=== PATIENT | male | born 1970 | race Hispanic/Latino ===

== ENCOUNTER 2022-12-31 00:15 | Emergency (ER) | payer SELFPAY ==
[2022-12-31 01:32] LABS: Specific Gravity 1.015 (1.005-1.030); Urine Bacteria None Seen /HPF (<20); Urine Bilirubin NEGATIVE (Negative); Urine Blood Negative (Negative); Urine Clarity Clear (Clear); Urine Color Colorless (Yellow); Urine Glucose NEGATIVE (Negative); Urine Protein NEGATIVE (Negative); Urine RBC <5 /HPF (None Seen); Urine Urobilinogen Normal (Normal); Urine pH 6.5 (5.0-7.0)
[2022-12-31] MEDS ORDERED: HYDRALAZINE HCL 20 MG/ML VIAL ONE (01:32)
[2022-12-31] MEDS ORDERED: NA CHLORIDE 0.9% 1,000 ML ONE (01:32)
[2022-12-31 01:42] LABS: Protime INR 1.03
[2022-12-31 01:47] LABS: Barbiturates NEGATIVE (NEGATIVE); Benzodiazepines NEGATIVE (NEGATIVE); Cocaine NEGATIVE (NEGATIVE); METHAMPHETAM NEGATIVE (NEGATIVE); Methadone NEGATIVE (NEGATIVE); Opiates NEGATIVE (NEGATIVE); Phencyclidine NEGATIVE (NEGATIVE); THC Cannibis NEGATIVE (NEGATIVE)
[2022-12-31 01:53] LABS: Absolute Lymphocytes (CBC) 3.4 K/uL (0.7-4.9); Hematocrit 43.7 % (39.6-49.0); Lymphocytes % 40.3 % (15.3-44.8); MCV 94.1 fL (80-100); MPV 8.5 fL (7.6-11.3); RBC Red Blood Cell Count 4.64 M/uL (4.33-5.43)
[2022-12-31 02:01] LABS: Albumin 3.8 g/dL (3.4-5.0); Bilirubin Direct 0.1 mg/dL (0-0.2); Bilirubin Indirect, Calculated 0.3 (0.2-0.8); Bilirubin Total 0.4 mg/dL (0.2-1.0); Magnesium 2.2 mg/dL (1.6-2.4); Potassium 3.5 mEq/L (3.5-5.1); Protein, Total 7.5 g/dL (6.4-8.2); Troponin High Sensitivity 5.4 pg/mL (<58.9)
[2022-12-31] MEDS ORDERED: AMLODIPINE 10 MG TAB ONE (03:03)
--- NOTE | 2022-12-31 03:13 | ER ---
Nurse's Notes [facility] Name: Donavon Lopez Age: 52 yrs Sex: Male : 1970 Arrival Date: 12/31/2022 Time: 00:15 Bed 18 Private MD: Diagnosis: Hypertensive heart disease without heart failure;Other acute sinusitis Presentation: 12/31 00:31 Chief complaint: Patient states: "My blood pressure was 160/115, my left hand started vc1 tingling and a little bit of pain down my left arm.". Coronavirus screen: Vaccine status: Patient reports being unvaccinated. Client denies travel out of the [place] in the last 14 days. At this time, the client does not indicate any symptoms associated with coronavirus-19. Ebola Screen: Patient negative for fever greater than or equal to 101.5 degrees Fahrenheit, and additional compatible Ebola Virus Disease symptoms Patient denies exposure to infectious person. Patient denies travel to an Ebola-affected area in the 21 days before illness onset. No symptoms or risks identified at this time. Initial Sepsis Screen: Does the patient meet any 2 criteria? No. Patient's initial sepsis screen is negative. Does the patient have a suspected source of infection? No. Patient's initial sepsis screen is negative. Risk Assessment: Do you want to hurt yourself or someone else? Patient reports no desire to harm self or others. Onset of symptoms was December 30, 2022 at 23:30. 00:31 Method Of Arrival: Ambulatory vc1 00:31 Acuity: SHANON 2 vc1 Triage Assessment: 00:34 General: Appears in no apparent distress. comfortable, Behavior is calm, cooperative, vc1 appropriate for age. Pain: Complains of pain in left arm Pain does not radiate. Pain currently is 2 out of 10 on a pain scale. EENT: No deficits noted. No signs and/or symptoms were reported regarding the EENT system. Neuro: Level of Consciousness is awake, alert, obeys commands, Oriented to person, place, time, situation, Appropriate for age. Cardiovascular: Chest pain is denied Pain down left arm tingling in left fingers. Respiratory: Airway is patent Respiratory effort is even, unlabored, Respiratory pattern is regular, symmetrical. GI: No deficits noted. No signs and/or symptoms were reported involving the gastrointestinal system. : No deficits noted. No signs and/or symptoms were reported regarding the genitourinary system. Derm: No deficits noted. No signs and/or symptoms reported regarding the dermatologic system. Musculoskeletal: No deficits noted. No signs and/or symptoms reported regarding the musculoskeletal system. Historical: - Allergies: 00:33 No Known Allergies; vc1 - PMHx: 00:33 Hypertensive disorder; Diet controlled; vc1 - PSHx: 00:33 None; vc1 - Immunization history:: Client reports having NOT received the Covid vaccine. - Social history:: Smoking status: Patient denies any tobacco usage or history of. Screenin:34 [facility] ED Fall Risk Assessment (Adult) History of falling in the last 3 months, vc1 including since admission No falls in past 3 months (0 pts) Confusion or Disorientation No (0 pts) Intoxicated or Sedated No (0 pts) Impaired Gait No (0 pts) Mobility Assist Device Used No (0 pt) Altered Elimination No (0 pt) Score/Fall Risk Level 0 - 2 = Low Risk Oriented to surroundings, Maintained a safe environment, Educated pt \\T\\ family on fall prevention, incl call for assistance when getting out of bed. Abuse screen: Denies threats or abuse. Nutritional screening: No deficits noted. Tuberculosis screening: No symptoms or risk factors identified. Assessment: 00:30 General: Appears comfortable, Behavior is calm, cooperative. Pain: Complains of pain in ha1 left arm Pain does not radiate. Pain currently is 5 out of 10 on a pain scale. Pain began suddenly. Neuro: Level of Consciousness is awake, alert, obeys commands, Oriented to person, place, time, situation. Neuro: Reports elevated blood pressure.. Cardiovascular: Capillary refill < 3 seconds Patient's skin is warm and dry. Respiratory: Airway is patent Respiratory effort is even, unlabored, Respiratory pattern is regular, symmetrical. GI: No signs and/or symptoms were reported involving the gastrointestinal system. Musculoskeletal: Circulation, motion, and sensation intact. Range of motion: intact in all extremities. 01:45 Reassessment: Patient and/or family updated on plan of care and expected duration. Pain ha1 level reassessed. Patient is alert, oriented x 3, equal unlabored respirations, skin warm/dry/pink. Patient states feeling better. Patient states symptoms have improved. 02:33 Reassessment: Patient and/or family updated on plan of care and expected duration. Pain ha1 level reassessed. Patient is alert, oriented x 3, equal unlabored respirations, skin warm/dry/pink. Patient denies pain at this time. 03:30 Reassessment: Patient and/or family updated on plan of care and expected duration. Pain ha1 level reassessed. Patient is alert, oriented x 3, equal unlabored respirations, skin warm/dry/pink. Patient denies pain at this time. Patient states feeling better. Patient states symptoms have improved. Vital Signs: 00:31 BP 201 / 137; Pulse 76; Resp 18; Temp 97.4; Pulse Ox 98% ; Weight 81.65 kg; Height 5 vc1 ft. 8 in. ; Pain 0/10; 00:36 BP 189 / 129; vc1 00:45 BP 181 / 118; Pulse 74; Resp 18 S; Pulse Ox 99% on R/A; ha1 01:45 BP 131 / 91; Pulse 71; Resp 14 S; Pulse Ox 97% on R/A; ha1 02:33 BP 164 / 108; Pulse 80; Resp 18 S; Pulse Ox 99% on R/A; ha1 03:30 BP 164 / 104; Pulse 81; Resp 15 S; Pulse Ox 99% on R/A; ha1 00:31 Body Mass Index 27.37 (81.65 kg, 172.72 cm) vc1 00:31 Pain Scale: Adult vc1 ED Course: 00:16 Patient arrived in ED. ja2 00:18 Mike Shoemaker PA is PHCP. cp 00:18 Karthikeyan Sena MD is Attending Physician. cp 00:31 Patient has correct armband on for positive identification. Placed in gown. Bed in low ha1 position. Call light in reach. Side rails up X 1. 00:33 Triage completed. vc1 00:34 Arm band placed on left wrist. vc1 01:06 Alia Rodríguez RN is Primary Nurse. ha1 01:15 Missed attempt(s): 20 gauge in right forearm. bc6 01:16 XRAY Chest (1 view) In Process Unspecified. EDMS 01:25 Urinalysis W/Microscopic Sent. bc6 01:25 UDS Sent. bc6 01:25 Basic Metabolic Panel Sent. bc6 01:25 CBC with Diff Sent. bc6 01:25 LFT's Sent. bc6 01:25 Magnesium Sent. bc6 01:25 NT PRO-BNP Sent. bc6 01:25 PT-INR Sent. bc6 01:25 Troponin HS Sent. bc6 01:26 Inserted saline lock: 22 gauge in right hand, using aseptic technique. bc6 01:44 Basic Metabolic Panel Sent. ha1 01:44 CBC with Diff Sent. ha1 01:44 LFT's Sent. ha1 01:44 Magnesium Sent. ha1 01:44 NT PRO-BNP Sent. ha1 01:44 Troponin HS Sent. ha1 02:24 CT Head Brain wo Cont In Process Unspecified. EDMS 03:46 No provider procedures requiring assistance completed. IV discontinued, intact, ha1 bleeding controlled, No redness/swelling at site. Pressure dressing applied. Administered Medications: 00:49 CANCELLED (Physician Discretion): NS 0.9% IV 1000 ml IV at 1 bolus Per protocol; 1000 cp mL bolus 01:09 Drug: hydrALAZINE IVP 10 mg Route: IVP; Site: right hand; ha1 01:30 Follow up: Response: No adverse reaction ha1 01:10 Drug: NS 0.9% IV 1000 ml Route: IV; Rate: 500 ml/hr; Site: right hand; ha1 03:48 Follow up: Response: No adverse reaction; IV Status: Completed infusion; IV Intake: ha1 1000ml 02:59 Drug: amLODIPine PO 10 mg Route: PO; ha1 03:30 Follow up: Response: No adverse reaction ha1 Medication: 03:46 VIS not applicable for this client. ha1 Intake: 03:48 IV: 1000ml; Total: 1000ml. ha1 Outcome: 03:13 Discharge ordered by . cp 03:46 Discharged to home ambulatory. ha1 03:46 Condition: stable 03:46 Discharge instructions given to patient, Instructed on discharge instructions, follow up and referral plans. medication usage, Demonstrated understanding of instructions, follow-up care, medications, Prescriptions given X 2. 03:49 Patient left the ED. ha1 Signatures: Dispatcher [employer] EDMS Mike Shoemaker PA PA cp Alexander, Jessica ja2 Cindy Rockwell RN RN vc1 Alia Rodríguez RN RN ha1 Any Merlos bc6 Corrections: (The following items were deleted from the chart) 03:48 03:47 Response: No adverse reaction; IV Status: Completed infusion; IV Intake: 500ml ha1ha1
--- NOTE | 2022-12-31 03:13 | EDPHYS ---
Physician Documentation [facility] Name: Donavon Lopez Age: 52 yrs Sex: Male : 1970 Arrival Date: 12/31/2022 Time: 00:15 Bed 18 Private MD: ED Physician Karthikeyan Sena HPI: 12/31 00:55 This 52 yrs old Male presents to ER via Ambulatory with complaints of High cp Blood Pressure. 00:55 The patient has elevated blood pressure and discovered this at home. cp 00:55 Onset: The symptoms/episode began/occurred gradually, and became worse today. cp Associated signs and symptoms: Pertinent positives: headache, left upper arm pain and tingling of left hand, Pertinent negatives: chest pain, visual changes, vomiting, weakness. Severity of symptoms: in the emergency department the blood pressure is are actually worse, 201 mm Hg. Patient reports he has not taken prescribed hypertensive medication Amlodipine for months. Historical: - Allergies: 00:33 No Known Allergies; vc1 - PMHx: 00:33 Hypertensive disorder; Diet controlled; vc1 - PSHx: 00:33 None; vc1 - Immunization history:: Client reports having NOT received the Covid vaccine. - Social history:: Smoking status: Patient denies any tobacco usage or history of. ROS: 01:00 Constitutional: Negative for body aches, chills, fever, poor PO intake. cp 01:00 Cardiovascular: Negative for chest pain, edema, palpitations. cp 01:00 Respiratory: Negative for cough, shortness of breath, wheezing. 01:00 Eyes: Negative for injury, pain, redness, and discharge. cp 01:00 ENT: Negative for drainage from ear(s), ear pain, sore throat, difficulty swallowing, cp difficulty handling secretions. 01:00 Abdomen/GI: Negative for abdominal pain, nausea, vomiting, and diarrhea. 01:00 MS/extremity: Positive for pain, tingling, of the left hand and left upper arm, Negative for injury or acute deformity, decreased range of motion. 01:00 Neuro: Positive for headache, Negative for altered mental status, numbness, syncope, weakness. 01:00 All other systems are negative. Exam: 01:05 Constitutional: The patient appears in no acute distress, alert, awake, cp non-diaphoretic, non-toxic, well developed, well nourished. 01:05 Head/Face: Normocephalic, atraumatic. cp 01:05 Eyes: Periorbital structures: appear normal, Pupils: equal, round, and reactive to light and accomodation, Extraocular movements: intact throughout, Conjunctiva: normal, no exudate, no injection, Sclera: no appreciated abnormality, Lids and lashes: appear normal, bilaterally. 01:05 ENT: External ear(s): are unremarkable, Nose: is normal, Mouth: Lips: moist, Oral mucosa: pink and intact, moist, Posterior pharynx: is normal, airway is patent, no erythema, no exudate. 01:05 Neck: ROM/movement: is normal, is supple, without pain, no range of motions limitations, no nuchal rigidity. 01:05 Chest/axilla: Inspection: normal, Palpation: is normal, no crepitus, no tenderness. 01:05 Cardiovascular: Rate: normal, Rhythm: regular, Edema: is not appreciated, JVD: is not appreciated. 01:05 Respiratory: the patient does not display signs of respiratory distress, Respirations: normal, no use of accessory muscles, no retractions, labored breathing, is not present, Breath sounds: are clear throughout, no decreased breath sounds, no stridor, no wheezing. 01:05 Abdomen/GI: Inspection: abdomen appears normal, Palpation: abdomen is soft and non-tender, in all quadrants. 01:05 Neuro: Orientation: to person, place \T\ time. Mentation: is normal, Cerebellar function: is grossly normal, Motor: moves all fours, strength is normal, Sensation: no obvious gross deficits. 02:27 ECG was reviewed by the Attending Physician. cp Vital Signs: 00:31 BP 201 / 137; Pulse 76; Resp 18; Temp 97.4; Pulse Ox 98% ; Weight 81.65 kg; Height 5 vc1 ft. 8 in. ; Pain 0/10; 00:36 BP 189 / 129; vc1 00:45 BP 181 / 118; Pulse 74; Resp 18 S; Pulse Ox 99% on R/A; ha1 01:45 BP 131 / 91; Pulse 71; Resp 14 S; Pulse Ox 97% on R/A; ha1 02:33 BP 164 / 108; Pulse 80; Resp 18 S; Pulse Ox 99% on R/A; ha1 03:30 BP 164 / 104; Pulse 81; Resp 15 S; Pulse Ox 99% on R/A; ha1 00:31 Body Mass Index 27.37 (81.65 kg, 172.72 cm) vc1 00:31 Pain Scale: Adult vc1 MDM: 00:34 Patient medically screened. 03:10 Data reviewed: vital signs, nurses notes, lab test result(s), EKG, radiologic studies, cp CT scan, plain films. 03:10 Differential diagnosis: hypertensive crisis, Malignant HTN, CVA, intracerebral cp hemorrhage. Consideration of Admission/Observation Escalation of care including admission/observation considered. I considered the following discharge prescriptions or medication management in the emergency department Medications were administered in the Emergency Department. See MAR. Care significantly affected by the following chronic conditions: Hypertension. Counseling: I had a detailed discussion with the patient and/or guardian regarding: the historical points, exam findings, and any diagnostic results supporting the discharge/admit diagnosis, the presence of at least one elevated blood pressure reading (>120/80) during this emergency department visit, lab results, radiology results, the need for outpatient follow up, for definitive care, a family practitioner, to return to the emergency department if symptoms worsen or persist or if there are any questions or concerns that arise at home. Response to treatment: the patient's symptoms have markedly improved after treatment, and as a result, I will discharge patient. 05 00:49 Order name: Basic Metabolic Panel; Complete Time: 02:05 cp 12/31 02:59 Interpretation: Normal except: GLUC 114; BUN 21; GFR 86. cp 12/31 00:49 Order name: CBC with Diff; Complete Time: 02:01 cp 12/31 02:59 Interpretation: EOSINOPHIL % 5.3; Reviewed. cp 12/31 00:49 Order name: LFT's; Complete Time: 02:05 cp 12/31 02:59 Interpretation: Normal except: GLOB 3.7; A/G 1.0. cp 12/31 00:49 Order name: Magnesium; Complete Time: 02:05 cp 12/31 00:49 Order name: NT PRO-BNP; Complete Time: 02:05 cp 12/31 00:49 Order name: PT-INR; Complete Time: 02:01 cp 12/31 00:49 Order name: Troponin HS; Complete Time: 02:05 cp 05/12 03:00 Interpretation: Troponin HS 5.4; Reviewed. 12/31 00:49 Order name: UDS; Complete Time: 02:01 cp 12/31 00:49 Order name: Urinalysis W/Microscopic; Complete Time: 02:01 cp 12/31 00:49 Order name: XRAY Chest (1 view) cp 05 01:04 Order name: CT Head Brain wo Cont cp 12/31 00:49 Order name: EKG; Complete Time: 00:50 cp 12/31 00:49 Order name: Cardiac monitoring; Complete Time: 01:43 cp 12/31 00:49 Order name: EKG - Nurse/Tech; Complete Time: 02:33 cp 12/31 00:49 Order name: IV Saline Lock; Complete Time: :25 cp 12/31 00:49 Order name: Labs collected and sent; Complete Time: 01:25 cp 12/31 00:49 Order name: O2 Per Protocol; Complete Time: :43 cp 12/31 00:49 Order name: O2 Sat Monitoring; Complete Time: :43 cp EC:27 Rate is 73 beats/min. Rhythm is regular. MN interval is normal. QRS interval is normal. cp QT interval is normal. T waves are Inverted in leads III, aVR. Interpreted by me. Reviewed by me. Administered Medications: 00:49 CANCELLED (Physician Discretion): NS 0.9% IV 1000 ml IV at 1 bolus Per protocol; 1000 cp mL bolus 01:09 Drug: hydrALAZINE IVP 10 mg Route: IVP; Site: right hand; ha1 01:30 Follow up: Response: No adverse reaction ha1 01:10 Drug: NS 0.9% IV 1000 ml Route: IV; Rate: 500 ml/hr; Site: right hand; ha1 03:48 Follow up: Response: No adverse reaction; IV Status: Completed infusion; IV Intake: ha1 1000ml 02:59 Drug: amLODIPine PO 10 mg Route: PO; ha1 03:30 Follow up: Response: No adverse reaction ha1 Disposition: 04:08 Co-signature as Attending Physician, Karthikeyan Sena MD I reviewed the patient's care rn provided by the Advanced Practice Provider and agree with the diagnosis and treatment plan. Disposition Summary: 12/31/22 03:13 Discharge Ordered Location: Home cp Problem: chronic cp Symptoms: have improved cp Condition: Stable cp Diagnosis - Hypertensive heart disease without heart failure cp - Other acute sinusitis cp Followup: cp - With: Private Physician - When: 2 - 3 days - Reason: Recheck today's complaints Discharge Instructions: - Discharge Summary Sheet cp - Hypertension, Adult cp - Sinusitis, Adult cp - Aspirin and Your Heart cp - Form - Blood Pressure Record Sheet cp - How to Take Your Blood Pressure cp Forms: - Medication Reconciliation Form cp - Thank You Letter cp - Antibiotic Education cp - Prescription Opioid Use cp Prescriptions: - amlodipine 10 mg Oral tablet - take 1 tablet by ORAL route daily; 30 tablet; Refills: 0, Product Selection cp Permitted - Augmentin 875-125 mg Oral Tablet - take 1 tablet by ORAL route every 12 hours for 10 days; 20 tablet; Refills: 0, cp Product Selection Permitted Signatures: Dispatcher [employer] EDMS Karthikeyan Sena MD MD rn Attema, Lee, BILINGUAL TEACHER-C BILINGUAL TEACHER-Cla1 Mike Shoemaker PA PA cp Cindy Rockwell RN RN vc1 Alia Rodríguez RN RN ha1 Corrections: (The following items were deleted from the chart) 00:49 00:49 NS 0.9% IV 1000 ml IV at 1 bolus Per protocol; 1000 mL bolus ordered. cp cp
[2022-12-31 04:23] VITALS: TEMP 97.4
[2022-12-31 04:29] VITALS: O2SAT 99
[2022-12-31 04:31] VITALS: BP 164/104
--- NOTE | 2023-01-03 11:47 | EKG ---
Test Date: 2022-12-31 Test Time: 02:20:15 Chair Car Attendant: CESAR MEASUREMENT RESULTS: Intervals: Rate: 73 MN: 154 QRSD: 88 QT: 392 QTc: 431 Kopperl: P: 46 MN: 154 QRS: 0 T: -12 INTERPRETIVE STATEMENTS: Normal sinus rhythm Nonspecific T wave abnormality Abnormal ECG No previous ECG available for comparison Electronically Signed On 01-03-23 11:42:00 CDT by Ezekiel Shabazz
--- NOTE | 2023-01-04 08:44 | RAD REPORT ---
EXAM DESCRIPTION: CT - Head Brain Wo Cont - 12/31/2022 5:13 am CLINICAL HISTORY: Htn TECHNIQUE: Contiguous axial CT images obtained through the brain without IV contrast. Coronal and sa gittal reformatted images were provided. This exam was performed according to our departmental dose-optimization program, which includes autom ated exposure control, adjustment of the mA and/or kV according to patient size and/or use of iterati ve reconstruction technique. COMPARISON: None available for comparison FINDINGS: Brain: No significant white matter changes. No focal mass effect. Fox-white matter differ entiation is within normal limits. No hemorrhage. Ventricles: No ventriculomegaly or midline shift. Extra-axial spaces: No extra-axial collection or hemorrhage. Paranasal sinuses and mastoid air cells: Mild paranasal sinus mucosal thickening with small air-fluid level in the left maxillary sinus, which may represent acute sinusitis. Bones: Unremarkable Soft tissues: Unremarkable IMPRESSION: 1. No acute intracranial or extra-axial abnormality. 2. Mild paranasal sinus mucosal thickening with small air-fluid level in the left maxillary sinus, which may represent acute sinusitis. Electronically signed by: Ramone Clark MD 12/31/2022 2:45 AM CDT Due to temporary technical issues with the PACS/Fluency reporting system, reports are being signed by the in house radiologist without review as a courtesy to ensure prompt reporting. The interpreting r adiologist is fully responsible for the content of the report.
--- NOTE | 2023-01-04 08:49 | RAD REPORT ---
EXAM DESCRIPTION: RAD - Chest Single View - 12/31/2022 1:14 am CLINICAL HISTORY: 52 years Male left arm pain COMPARISON: None FINDINGS: Lung volumes diminished. Cardiac silhouette is normal in size. No pneumothorax. No large pleural effusion. No focal consolidation. No acute bony finding. IMPRESSION: 1. No acute cardiopulmonary findings. 2. Low lung volumes. Electronically signed by: Juventino Myrick MD 12/31/2022 1:26 AM CDT Due to temporary technical issues with the PACS/Fluency reporting system, reports are being signed by the in house radiologist without review as a courtesy to ensure prompt reporting. The interpreting r adiologist is fully responsible for the content of the report.
== END 2022-12-31 03:49 | disposition home or self-care (01) ==
LOC: ER 00:15
DX: I11.9 Hypertensive heart disease without heart failure (principal); J01.80 Other acute sinusitis
CPT/HCPCS: 36415; 70450; 71045; 80048; 80076; 80307; 81001; 83735; 83880; 84484; 85025; 85610; 93005; 96361; 96374; 99284; J0360; J7030